=== PATIENT | male | born 1980 | race Two or more races ===

== ENCOUNTER 2023-07-22 20:20 | Emergency (ER) | payer OTHER ==
[~2023-07-22] VITALS: Ht 175.3 cm; Wt 131.5 kg
[2023-07-22] MEDS ORDERED: OSEL75CA PO (22:41)
== END 2023-07-22 22:47 | disposition home or self-care (01) ==
LOC: ER 20:20
PROVIDERS: Emergency Medicine
DX: J10.1 Influenza due to other identified influenza virus with other respiratory manifestations (principal); M79.18 Myalgia, other site; Z20.822 Contact with and (suspected) exposure to COVID-19